=== PATIENT | male | born 1965 | race Caucasian/White ===

== ENCOUNTER 2023-12-26 00:41 | Observation (INO) | payer SELFPAY ==
[2023-12-26] VITALS (94 sets, daily range): BP systolic 73–168; BP diastolic 43–100; PULSE 46–136; TEMP 36.6–37.1; O2SAT 70–98; BMI 32.5; BMI 34.0
--- NOTE | 2023-12-26 00:56 | XR_ITS ---
The [address] [address] Patient Name: KIET DICKEY MRN: [id number] date: 1965 Sex: M Assigned Patient Location: ER Current Patient Location: ED.MAIN Accession/Order Number: [id number] Exam Date: 12/26/2023 01:05 Report Date: 12/26/2023 01:56 At the request of: FAUSTO GARDINER Procedure: XR chest 1V EXAM: XR chest 1V HISTORY: Tachycardia COMPARISON: Chest radiographs dated 03/18/2022. TECHNIQUE: One view of the chest was obtained. FINDINGS: The cardiac silhouette is normal in size. There is scarring in the mid to lower right lung. There is no significant pneumothorax or pleural effusion. No acute osseous abnormality is seen. XR/XR chest 1V IMPRESSION: 1. No acute cardiopulmonary abnormality. Electronically authenticated by: Iman SINCLAIR Date: 12/26/2023 01:56
--- NOTE | 2023-12-26 00:56 | ECG_ITS ---
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
--- NOTE | 2023-12-26 00:57 | ED.GENADUL1 ---
HPI HPI - General Adult General Chief complaint: Chest Pain Stated complaint: CHEST PAIN Time Seen by Provider: 12/26/23 00:44 Source: patient Mode of arrival: walk-in Limitations: no limitations History of Present Illness HPI narrative: 58-year-old male presents to the emergency department for a chief complaint of numbness and tingling in his left arm and a funny feeling in his chest. He has had it for half an hour since he woke up to go to the bathroom. He has a history of atrial fibrillation and thinks he may have seen a superannuation funds manager once in the remote past. This happens from time to time, the last time was 6 or 8 months ago and he did not go and have it checked and it resolved on its own. No syncope or dizziness. No fever or cough. Related Data Home Medications ?Medication ?Instructions ?Recorded ?Confirmed aspirin 81 mg capsule 81 mg PO DAILY 12/26/23 12/26/23 diltiazem HCl 60 mg tablet 60 mg PO BID 12/26/23 12/26/23 (Cardizem) Allergies Allergy/AdvReac Type Severity Reaction Status Date / Time No Known Drug Allergies Allergy Verified 12/26/23 00:53 Opioid HPI Opioid Management Most Recent Opioid Data: No Data to Display Review of Systems ROS Narrative A ten point review of systems is negative except as noted above. Exam Narrative Exam Narrative: Nurses note and vital signs reviewed and patient is not hypoxic. General: The patient appears well and in no apparent distress. Patient is resting comfortably on cart. Skin: Warm, dry, no pallor noted. There is no rash noted. Head: Normocephalic, atraumatic Eye: Normal conjunctiva, no drainage Ears, Nose, Mouth, and Throat: oral mucosa is moist. Nares patent. Cardiovascular: Irregularly irregular and tachycardic Respiratory: Patient is in no distress, no accessory muscle use, lungs are clear to auscultation, no wheezing, rales or rhonchi Back: non-tender GI: Soft and nontender Musculoskeletal: The patient has no evidence of calf tenderness, no pitting edema, symmetrical pulses noted bilaterally Neurological: A&O, normal speech Psychiatric: Cooperative Constitutional Vital Signs, click to edit/add: Last Vital Signs Temp 97.9 F 12/26/23 01:39 Pulse 107 H 12/26/23 01:31 Resp 19 12/26/23 01:31 BP 142/99 H 12/26/23 01:31 Pulse Ox 94 L 12/26/23 01:31 O2 Del Method Room Air 12/26/23 00:46 Course Vital Signs Vital signs: Vital Signs Pulse Rate 87 12/26/23 00:46 Respiratory Rate 20 12/26/23 00:46 Blood Pressure 142/98 H 12/26/23 00:46 Pulse Oximetry 96 12/26/23 00:46 Oxygen Delivery Method Room Air 12/26/23 00:46 Temperature 97.9 F 12/26/23 01:39 Pulse Rate 107 H 12/26/23 01:31 Respiratory Rate 19 12/26/23 01:31 Blood Pressure 142/99 H 12/26/23 01:31 Pulse Oximetry 94 L 12/26/23 01:31 Oxygen Delivery Method Room Air 12/26/23 00:46 Medical Decision Making MDM Narrative Medical decision making narrative: The patient presented with atrial fibrillation and RVR. He was given IV Cardizem bolus and drip and his heart rate has come down. Troponin negative. TSH somewhat elevated but the T4 is normal and the T3 is pending. He will be admitted to ICU on Cardizem drip. Treatment diagnosis and disposition were discussed with the patient. Differential Diagnosis Differential Diagnosis: Atrial fibrillation, atrial flutter, myocardial infarction, CHRISTO Lab Data Lab results reviewed: Yes I reviewed the patient's lab results Labs: Lab Results 12/26/23 Range/Units 00:50 WBC 8.0 (4.0-11.0) 10^3/uL RBC 5.65 (4.70-6.10) 10^6/uL Hgb 13.2 L (14.0-18.0) g/dL Hct 43.0 (42.0-54.0) % MCV 76.1 L (80.0-94.0) fL MCH 23.4 L (25.9-34.0) pg MCHC 30.7 (29.9-35.2) g/dL RDW 19.0 H (11.0-15.0) % Plt Count 327 (150-450) 10^3/uL MPV 9.3 L (9.5-13.5) fL Neut % (Auto) 53.2 (43.0-75.0) % Lymph % (Auto) 28.8 (20.5-60.0) % [place] % (Auto) 12.1 H (1.7-12.0) % Eos % (Auto) 4.5 (0.9-7.0) % Baso % (Auto) 1.0 (0.2-2.0) % Neut # (Auto) 4.3 (1.4-6.5) 10^3/uL Lymph # (Auto) 2.3 (1.2-3.8) 10^3/uL [place] # (Auto) 1.0 H (0.3-0.8) 10^3/uL Eos # (Auto) 0.4 (0.0-0.7) 10^3/uL Baso # (Auto) 0.1 (0.0-0.1) 10^3/uL Abs Immat Gran (auto) 0.03 (0.00-0.03) 10^3/uL Imm/Tot Granulo (auto) 0.4 (0.0-0.5) % Sodium 141 (136-145) mmol/L Potassium 3.8 (3.5-5.1) mmol/L Chloride 105 (98-107) mmol/L Carbon Dioxide 28.6 (21.0-32.0) mmol/L Anion Gap 11.2 BUN 11.0 (7.0-18.0) mg/dL Creatinine 1.16 (0.70-1.30) mg/dL Est GFR ( Amer) >60 (>=60) Est GFR (Non-Af Amer) >60 (>=60) BUN/Creatinine Ratio 9.5 Glucose 131 H (74-106) mg/dL Calcium 8.9 (8.5-10.1) mg/dL Troponin I High Sens 5.5 (4.0-76.1) pg/mL TSH 6.443 H (0.358-3.740) uIU/mL Thyroxine (T4) 6.40 (4.50-12.10) ug/dL Imaging Data Chest x-ray: Radiologist's impression: Procedure: XR chest 1V EXAM: XR chest 1V HISTORY: Tachycardia COMPARISON: Chest radiographs dated 03/18/2022. TECHNIQUE: One view of the chest was obtained. FINDINGS: The cardiac silhouette is normal in size. There is scarring in the mid to lower right lung. There is no significant pneumothorax or pleural effusion. No acute osseous abnormality is seen. IMPRESSION: 1. No acute cardiopulmonary abnormality. ECG Data Attestation: I personally reviewed and interpreted this ECG as follows: (EKG on my interpretation shows atrial fibrillation with a rate of 131.) Critical Care Time Critical Care Time Critical Care Time: Yes Total Critical Care Time: 35 Attestation: Due to the high probability of sudden and clinically significant deterioration in the patient's condition he/she required the highest level of my preparedness to intervene urgently I provided critical care time including documentation time, medication orders and management, reevaluation, vital sign assessment, ordering and reviewing of lab tests, ordering and reviewing of x-ray studies, and admission orders. Aggregate critical care time is 35 minutes including only time during which I was engaged in work directly related to his/her care and did not include time spent treating other patients simultaneously. Discharge Plan Discharge Chief Complaint: Chest Pain Clinical Impression: Atrial fibrillation with RVR Patient Disposition: Admitted As Inpatient Time of Disposition Decision: 01:58 Condition: Fair
[2023-12-26 01:02] LABS: Basophils Absolute Auto 0.1 10^3/uL (0.0-0.1); Eosinophils Absolute Auto 0.4 10^3/uL (0.0-0.7); Eosinophils Percent Auto 4.5 % (0.9-7.0); Hemoglobin 13.2 g/dL (14.0-18.0); Immature Granulocytes Abs Auto 0.03 10^3/uL (0.00-0.03); Immature Granulocytes Pct Auto 0.4 % (0.0-0.5); Lymphocytes Absolute Auto 2.3 10^3/uL (1.2-3.8); Lymphocytes Percent Auto 28.8 % (20.5-60.0); Mean Corpuscular HGB Conc 30.7 g/dL (29.9-35.2); Mean Corpuscular Hemoglobin 23.4 pg (25.9-34.0); Mean Corpuscular Volume 76.1 fL (80.0-94.0); Mean Platelet Volume 9.3 fL (9.5-13.5); Monocytes Percent Auto 12.1 % (1.7-12.0); Neutrophils Absolute Auto 4.3 10^3/uL (1.4-6.5); Neutrophils Percent Auto 53.2 % (43.0-75.0); Platelet Count 327 10^3/uL (150-450); Red Blood Count 5.65 10^6/uL (4.70-6.10)
[2023-12-26] MEDS: DILTIAZEM HCL 25 MG/5 ML VIAL 10 MG IV (01:09)
[2023-12-26 01:27] LABS: Anion Gap 11.2; BUN Creatinine Ratio 9.5; Calcium 8.9 mg/dL (8.5-10.1); Carbon Dioxide 28.6 mmol/L (21.0-32.0); Chloride 105 mmol/L (98-107); Estimated GFR (African America >60 (>=60); Estimated GFR (Non-African Ame >60 (>=60); Glucose 131 mg/dL (74-106); Potassium 3.8 mmol/L (3.5-5.1); Sodium 141 mmol/L (136-145); Thyroid Stimulating Hormone 6.443 uIU/mL (0.358-3.740); Troponin I High Sensitivity 5.5 pg/mL (4.0-76.1)
[2023-12-26] MEDS: dilTIAZem HCL 125 MG in 0.9 % SODIUM CHLORIDE 100 ML IV (01:57)
[2023-12-26] MEDS: 0.9 % SODIUM CHLORIDE 1,000 ML 75 ML IV (03:53)
[2023-12-26] MEDS: OMEPRAZOLE 20 MG CAPSULE.DR PO ×2 (03:54→08:10)
--- NOTE | 2023-12-26 04:59 | PC.NURSE ---
stopped Cardizem gtt d/t HR dropping below 60bpm
[2023-12-26] MEDS: HEPARIN SODIUM,PORCINE/D5W 25,000 UNIT/500 ML IV.SOLN 20 UNIT IV (05:34)
[2023-12-26 05:37] LABS: Basophils Absolute Auto 0.1 10^3/uL (0.0-0.1); Basophils Percent Auto 0.9 % (0.2-2.0); Eosinophils Absolute Auto 0.3 10^3/uL (0.0-0.7); Eosinophils Percent Auto 3.5 % (0.9-7.0); Hematocrit 38.7 % (42.0-54.0); Hemoglobin 12.1 g/dL (14.0-18.0); Immature Granulocytes Abs Auto 0.03 10^3/uL (0.00-0.03); Immature Granulocytes Pct Auto 0.4 % (0.0-0.5); Lymphocytes Percent Auto 27.4 % (20.5-60.0); Mean Corpuscular HGB Conc 31.3 g/dL (29.9-35.2); Mean Corpuscular Hemoglobin 23.6 pg (25.9-34.0); Mean Corpuscular Volume 75.6 fL (80.0-94.0); Mean Platelet Volume 9.5 fL (9.5-13.5); Monocytes Absolute Auto 0.9 10^3/uL (0.3-0.8); Monocytes Percent Auto 11.9 % (1.7-12.0); Neutrophils Absolute Auto 4.1 10^3/uL (1.4-6.5); Neutrophils Percent Auto 55.9 % (43.0-75.0); Platelet Count 308 10^3/uL (150-450); Red Blood Count 5.12 10^6/uL (4.70-6.10); Red Cell Distribution Width 18.5 % (11.0-15.0); White Blood Count 7.4 10^3/uL (4.0-11.0)
[2023-12-26 05:53] LABS: INR 0.97; Partial Thromboplastin Time 25.8 sec (22.3-36.2); Prothrombin Time 10.3 sec (9.0-11.6)
[2023-12-26 05:58] LABS: Alanine Aminotransferase 23 U/L (16-63); Albumin Globulin Ratio 0.8; Albumin Level 2.7 g/dL (3.4-5.0); Alkaline Phosphatase 92 U/L (46-116); Anion Gap 14.3; Aspartate Amino Transferase 12 U/L (15-37); BUN Creatinine Ratio 9.4; Bilirubin Total 0.2 mg/dL (0.2-1.0); Calcium 8.3 mg/dL (8.5-10.1); Carbon Dioxide 23.9 mmol/L (21.0-32.0); Chloride 107 mmol/L (98-107); Estimated GFR (African America >60 (>=60); Estimated GFR (Non-African Ame >60 (>=60); Globulin 3.3 g/dL; Glucose 118 mg/dL (74-106); Phosphorus 3.8 mg/dL (2.6-4.7); Potassium 4.2 mmol/L (3.5-5.1); Sodium 141 mmol/L (136-145); Troponin I High Sensitivity 6.9 pg/mL (4.0-76.1)
--- NOTE | 2023-12-26 07:36 | CA_ITS ---
Patient Name: KIET DICKEY MR#: [id number] : 1965 Exam Date: 12/26/2023 Ordering Doctor: SHAIKH Corbin GLYNN . ECHOCARDIOGRAM REPORT PROCEDURE: CA ECHO DOPPLER COMPLETE INDICATIONS: Afib, hypertension COMPARISON: None. DESCRIPTION: COMPLETE ECHOCARDIOGRAM Real-time transthoracic echocardiography with 2D, M-mode, spectral and color flow Doppler performed. QUALITY: Technical quality was adequate; no subcostal images obtained. LEFT VENTRICLE: Normal chamber size. Moderate left ventricular hypertrophy. LV EF: Global left ventricular systolic function is normal; visually estimated ejection fraction is 55 to 60%. No obvious wall motion abnormalities. DIASTOLIC: Not adequately assessed due to heart rhythm. ATRIAL SEPTUM: Inadequately visualized. LEFT ATRIUM: Normal chamber size. RIGHT ATRIUM: Normal chamber size. RIGHT VENTRICLE: Normal chamber size. Normal right ventricular systolic function. TRICUSPID VALVE: Normal mobility and thickness. No stenosis with trivial regurgitation. No evidence of pulmonary hypertension. RVSP 32 mmHg MITRAL VALVE: Normal mobility and thickness. No evidence of mitral valve stenosis. Trivial mitral regurgitation. AORTIC VALVE: Normal trileaflet appearance. No visible sclerosis. Normal leaflet mobility. No evidence of aortic valve stenosis. Trivial aortic regurgitation. AORTIC ROOT: Normal diameter and appearance. PULMONIC VALVE: Normal thickness and mobility. No stenosis. No regurgitation. PERICARDIUM: No evidence of pericardial effusion. IVC: Not well visualized. CONCLUSION: 1. Global left ventricular systolic function is normal; visually estimated ejection fraction is 55 to 60% 2. Normal right ventricular size and systolic function 3. Moderate left ventricular hypertrophy 4. No significant valvular abnormalities Adult Echocardiography Procedure Report Left Ventricle LVEDD (3.7 - 5.6 cm): 4.38 cm LVESD (2.2 - 4.0 cm): 3.09 cm LVIVS thickness (0.6 - 1.2 cm): 1.41 cm LVPW thickness (0.5 - 1.0 cm): 1.13 cm LVOT Max Gradient: 5.42 mm[Hg], 3.07 mm[Hg] LVOT Area (cm2): 1.02 m/s Peak Velocity (LVOT): 1.16 m/s, 0.88 m/s LVOT Diameter 2.66 cm Left Atrium LA Volume Index (2D A2C): 28.52 ml/m2 Left Atrium Systolic Dimension: 3.90 cm Mitral Valve Mitral Valve E-Wave Peak Velocity: 0.96 m/s Right Ventricle Aorta AO Root Diam: 3.84 cm Ascending Ao Diam: 3.53 cm Aortic Valve AoV Area (Peak Sami): 4.54 cm2, 4.76 cm2, 4.28 cm2 Peak Velocity(Antegrade Flow): 1.36 m/s, 1.14 m/s Peak Gradient(Antegrade Flow): 7.39 mm[Hg], 5.17 mm[Hg] Tricuspid Valve Peak Velocity (Regurgitant Flow): 2.71 m/s, 2.14 m/s Pulmonic Valve Peak Velocity: 0.88 m/s Peak Gradient: 3.01 mm[Hg], 2.49 mm[Hg], 3.98 mm[Hg] Right Atrium Right Atrium Systolic Pressure: 43.64 ml, 43.64 ml Dictated by: Andrei Prajapati M.D. on 12/27/2023 at 09:39 Approved by: Andrei Prajapati M.D. on 12/27/2023 at 09:42
[2023-12-26] MEDS: ENOXAPARIN SODIUM 100 MG/ML SYRINGE SUBQ (08:10)
[2023-12-26] MEDS: ASPIRIN 81 MG TABLET.DR PO (08:10)
--- OUTSIDE RECORDS SUMMARY | 2023-12-26 09:55 | XMS_ITS | CCD ---
Author Organization [facility] Inform ion Partnership [facility] Care Team Providers Care Inverted Block Operator Name Role Phone DR JOAQUIN LYON Primary Care Charley STEELE, DR VICTORINO Chase Admitting Sandra STEELE, DR VICTORINO Chase Attending Unavailchema STEELE, DR VICTORINO Chase Consulting UnavailTEOFILO Borden Consulting Unavailable HU HANNA Consulting Unavailable SONALI, DR NUÑEZ Admitting Unavailable SONALI, DR NUÑEZ Attending Unavailable DR JOAQUIN LYON Primary Care Unavailable Problems Problem Classification Problem Date Documented Date Episodic/Chronic Cardiac dysrhythmias (4 sources) Unspecified atrial fibrillation; Translations: [UNSPECIFIED ATRIAL FIBRILLATION] Onset: 03-18-2022 Chronic Coronary atherosclerosis and other heart disease (1 source) Atherosclerotic heart disease of [place] coronary artery without angina pectoris; Translations: [ASHD [place] CA W/O ANGINA PECTORIS] Onset: 03-20-2022 Chronic Esophageal disorders (1 source) Gastro-esophageal reflux disease without esophagitis; Translations: [GERD WITHOUT ESOPHAGITIS] Onset: 03-20-2022 Chronic Essential hypertension (1 source) Essential (primary) hypertension; Translations: [ESSENTIAL PRIMARY HYPERTENSION] Onset: 03-20-2022 Chronic Other aftercare (1 source) senior living (current) use of aspirin; Translations: [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 Comment on above: Performed By: #### C MREP #### [facility] [address] [place] [address] Dr. Corina Baker CK.MB [Mass/Vol] 1.84 ng/mL Normal <=3.60 [facility] Comment on above: Performed By: #### C MREP #### [facility] [address] [place] [address] Dr. Corina Baker HSTROP 9.4 pg/mL Normal 4.0-76.[address] [facility] Comment on above: Result Comment: CUT- OFF POINTS HAVE BEEN ESTABLISHED BASED ON THE FOURTH UNIVERSAL DEFINITIONS OF MYOCARDIAL INFARCTION. THE UPPER REFERENCE LIMIT (URL) OF TROPONIN, DEFINED THE 99TH PERCENTILE OF cTnI DISTRIBUTION IN A REFERENCE POPULATION, HAS BEEN CONFIRMED THE DECISION THRESHOLD FOR MA DIAGNOSIS. Performed By: #### C MREP #### [facility] [address] [place] [address] Dr. Corina Baker BNPon 03-18-2022 Natriuretic peptide B (Bld) [Mass/Vol] 140.0 pg/mL Normal <=900.0 [facility] Comment on above: Performed By: #### B MAKING DEPARTMENT PREPARER, BMP #### [facility] [address] [place] [address] Dr. Corina Baker CARDIAC MINDI 3-6on 2 CK [Catalytic activity/Vol] 166 U/L Normal 39-[address] [facility] Comment on above: Performed By: #### C MREP #### [facility] [address] [place] [address] Dr. Corina Baker CK.MB [Mass/Vol] 2.16 ng/mL Normal <=3.60 [facility] Comment on above: Performed By: #### C MREP #### [facility] [address] [place] [address] Dr. Corina Baker HSTROP 8.2 pg/mL Normal 4.0-76.[address] [facility] Comment on above: Result Comment: CUT- OFF POINTS HAVE BEEN ESTABLISHED BASED ON THE FOURTH UNIVERSAL DEFINITIONS OF MYOCARDIAL INFARCTION. THE UPPER REFERENCE LIMIT (URL) OF TROPONIN, DEFINED THE 99TH PERCENTILE OF cTnI DISTRIBUTION IN A REFERENCE POPULATION, HAS BEEN CONFIRMED THE DECISION THRESHOLD FOR [place] DIAGNOSIS. Performed By: #### C MREP #### [facility] [address] [address] [address] Corina Baker CBC AUTO DIFFon 03-18-2022 BASO # 0.1 103/ul Normal 0.0-0.1 [facility] Comment on above: Performed By: #### C BC #### [facility] [address] [address] [address] Corina Baker Basophils/100 WBC (Bld) 0.7 % Normal 0.2-2.0 [facility] Comment on above: Performed By: #### C BC #### [facility] [address] [place] [address] Dr. Corina Baker EO # 0.2 103/ul Normal 0.0-0.7 [facility] Comment on above: Performed By: #### C BC #### [facility] [address] [place] [address] Dr. Corina Baker Eosinophils/100 WBC (Bld) 2.2 % Normal 0.9-7.0 [facility] Comment on above: Performed By: #### C BC #### [facility] [address] [place] [address] Dr. Corina Bakre Erythrocyte distribution width (RBC) [Ratio] 17.3 % Critically high 11.0-15.0 [facility] Comment on above: Performed By: #### C BC #### [facility] [address] [place] [address] Dr. Corina Baker Hematocrit (Bld) [Volume fraction] 40.5 % Critically low 42.0-54.0 [facility] Comment on above: Performed By: #### C BC #### [facility] [address] [place] [address] Dr. Corina Baker Hemoglobin (Bld) [Mass/Vol] 12.5 g/dL Critically low 14.0-18.0 [facility] Comment on above: Performed By: #### C BC #### [facility] [address] [place] [address] Dr. Corina Baker IG # 0.03 10e3/ul Normal 0.00-0.03 [facility] Comment on above: Performed By: #### C BC #### [facility] [address] [place] [address] Dr. Corina Baker IG % 0.3 % Normal 0.0-0.5 [facility] Comment on above: Performed By: #### C BC #### [facility] [address] [place] [address] Dr. Corina Baker LYMPH # 1.5 103/ul Normal 1.2-3.8 [facility] Comment on above: Performed By: #### C BC #### [facility] [address] [place] [address] Dr. Corina Baker Lymphocytes/100 WBC (Bld) 17.1 % Critically low 20.5-60.0 [facility] Comment on above: Performed By: #### C BC #### [facility] [address] [place] [address] Dr. Corina Baker MANUAL DIFF REQ NO Normal [facility] Comment on above: Performed By: #### C BC #### [facility] [address] [place] [address] Dr. Corina Baker MCH (RBC) [Entitic mass] 23.8 pg Critically low 25.9-34.0 [facility] Comment on above: Performed By: #### C BC #### [facility] [address] [place] [address] Dr. Corina Baker MCHC (RBC) [Mass/Vol] 30.9 g/dL Normal 29.9-35.2 [facility] Comment on above: Performed By: #### C BC #### [facility] [address] [place] [address] Dr. Corina Baker MCV (RBC) [Entitic vol] 77.0 fL Critically low 80.0-94.0 [facility] Comment on above: Performed By: #### C BC #### [facility] [address] [place] [address] Dr. Corina Baker MONO # 1.0 103/ul Critically high 0.3-0.8 [facility] Comment on above: Performed By: #### C BC #### [facility] [address] [address] [address] Corina Baker Monocytes/100 WBC (Bld) 11.5 % Normal 1.7-12.0 [facility] Comment on above: Performed By: #### C BC #### [facility] [address] [address] [address] Corina Baker NEUT # 6.1 103/ul Normal 1.4-6.[address] [facility] Comment on above: Performed By: #### C BC #### [facility] [address] [address] [address] Corina Baker Neutrophils/100 WBC (Bld) 68.2 % Normal 43.0-75.[address] [facility] Comment on above: Performed By: #### C BC #### [facility] [address] [place] [address] Dr. Corina Baker Platelet mean volume (Bld) [Entitic vol] 9.0 fL Critically low 9.5-13.5 [facility] Comment on above: Performed By: #### C BC #### [facility] [address] [address] [address] Corina Baker PLT 311 103/ul Normal 150-[address] [facility] Comment on above: Performed By: #### C BC #### [facility] [address] [place] [address] Dr. Corina Baker RBC 5.26 106/ul Normal 4.70-6.[address] [facility] Comment on above: Performed By: #### C BC #### [facility] [address] [place] [address] Dr. Corina Baker WBC 8.9 103/ul Normal 4.0-11.[address] [facility] Comment on above: Performed By: #### C BC #### [facility] [address] [place] [address] Dr. Corina Baker D-DIMERon 03-18-2022 D-DIMER 0.51 mg/L FEU Normal <=0.59 [facility] Comment on above: Performed By: #### D DIM #### [facility] [address] [place] [address] Dr. Corina Baker D-DIMER COMMENTS SEE BELOW Normal [facility] Comment on above: Result Comment: Incr eases in D-Dimer concentration observed with thromboembolic events can be variable due to localization, size, and age of the thrombus. Therefore, a thromboembolic event cannot be diagnosed with certainty on the basis of the reference range. D-Dimers may also be elevated for a variety of disorders including: advanced age, , coronary disease, cancer, liver disease, infection, inflammation, hematoma, DIC, trauma, post-surgery, diabetes, thrombolytic or anticoagulant therapy, stress, and generalized hospitalization. Performed By: #### D DIM #### [facility] [address] [place] [address] Dr. Corina Baker PROF CHEM 8 (BAS METB)on Anion gap [Moles/Vol] 7.7 mmol/L Normal [facility] Comment on above: Performed By: #### B MAKING DEPARTMENT PREPARER, BMP #### [facility] [address] [place] [address] Dr. Corina Baker Calcium [Mass/Vol] 8.2 mg/dL Critically low 8.5-10.1 [facility] Comment on above: Performed By: #### B MAKING DEPARTMENT PREPARER, BMP #### [facility] [address] [place] [address] Dr. Corina Baker Chloride [Moles/Vol] 108 mmol/L Critically high 98-[address] [facility] Comment on above: Performed By: #### B MAKING DEPARTMENT PREPARER, BMP #### [facility] [address] [place] [address] Dr. Corina Baker CO2 [Moles/Vol] 27.2 mmol/L Normal 21.0-32.0 [facility] Comment on above: Performed By: #### B MAKING DEPARTMENT PREPARER, BMP #### [facility] [address] [place] [address] Dr. Corina Baker Creatinine [Mass/Vol] 0.97 mg/dL Normal 0.70-1.30 [facility] Comment on above: Performed By: #### B MAKING DEPARTMENT PREPARER, BMP #### [facility] [address] [place] [address] Dr. Corina Baker EGFR-AF HUNGARIAN >60 Normal >=60 [facility] Comment on above: Performed By: #### B MAKING DEPARTMENT PREPARER, BMP #### [facility] [address] [place] [address] Dr. Corina Baker EGFR-NON AF HUNGARIAN >60 Normal >=60 [facility] Comment on above: Performed By: #### B MAKING DEPARTMENT PREPARER, BMP #### [facility] [address] [address] [address] Corina Baker Glucose [Mass/Vol] 103 mg/dL Normal 74-106 [facility] Comment on above: Performed By: #### B MAKING DEPARTMENT PREPARER, BMP #### [facility] [address] [place] [address] Dr. Corina Baker Potassium [Moles/Vol] 3.9 mmol/L Normal 3.5-5.1 [facility] Comment on above: Performed By: #### B MAKING DEPARTMENT PREPARER, BMP #### [facility] [address] [place] [address] Dr. Corina Baker Sodium [Moles/Vol] 139 mmol/L Normal 136-145 [facility] Comment on above: Performed By: #### B MAKING DEPARTMENT PREPARER, BMP #### [facility] [address] [place] [address] Dr. Corina Baker Urea nitrogen [Mass/Vol] 11.0 mg/dL Normal 7.0-18.0 [facility] Comment on above: Performed By: #### B MAKING DEPARTMENT PREPARER, BMP #### [facility] [address] [place] [address] Dr. Corina Baker Urea nitrogen/Creatinine [Mass ratio] 11.3 mg/mg Normal [facility] Comment on above: Performed By: #### B MAKING DEPARTMENT PREPARER, BMP #### [facility] [address] [place] [address] Dr. Corina Baker XR CHEST 2 Von 03-18-2022 XR CHEST 2 V EXAMINATION: XR CHES T 2 V HISTORY: Palpitations COMPARISON: Chest x-rays 10/23/2018 TECHNIQUE: Portable chest FINDINGS: The lung parenchyma is free of consolidation or infiltrate. Persistent scarring within the right mid hemithorax. No pneumothorax or pleural effusion. The cardiac, mediastinal and hilar contours are normal. The visualized osseous structures exhibit no gross abnormality. IMPRESSION: No acute cardiopulmonary abnormality. Electronically authenticated by: HU HANNA Date: 2022-03-18 20:13 Normal [facility] Encounters Encounter Date Encounter Type Care Provider Facility Start: 04-03-[address] JOAQUIN LYON Facility :[facility] Start: 03-18-2022 End: 03-19-[address] JOAQUIN LYON Facility:[facility] Payers Date Payer Category Payer Unknown [id number] 1965 Unknown [id number] 1959 Self-pay [id number] Summary Purpose Family History No Family History Records Found Advance Directives No Advanced Directives Records Found Additional Source Comments (unrecognized sect ion and content) No Status Records Found INFORMATION SOURCE (unrecogn ized section and content) DATE CREATED AUTHOR 04/04/2022 [facility] FOR RECORDS PERTAINING TO PATIENTS WHO ARE OR HAVE BEEN ENROLLED IN A CHEMICAL DEPENDENCY/SUBSTANCEABUSE PROGRAM, SOME INFORMATION MAY BE OMITTED. This clinical summary was aggregated from multiple sources. Caution should be exercised in using it in the provision of clinical care. This summary normalizes information from multiple sources, and as a consequence, information in this document may materially change the coding, format and clinical context of patient data. In addition, data may be omitted in some cases. CLINICAL DECISIONS SHOULD BE BASED ON THE PRIMARY CLINICAL RECORDS. [facility]. provides no warranty or guarantee of the accuracy or completeness of information in this document.
--- NOTE | 2023-12-26 10:17 | CM.NOTE ---
Rounds made with Dr. Jerome. Dr. Jerome discusses plan of care and medications to be taken at home. Mr. Pinzon verbalizes understanding. Plan for discharge today.
--- NOTE | 2023-12-26 10:19 | ECG_ITS ---
[facility] Test Date: 2023-12-26 Pat Name: KIET DICKEY Department: Room: Formerly named [facility] Gender: Male Stock Replenisher: : 1965 Requested By: Order Number: [id number] Reading MD: SARY BHATTI Measurements Intervals [place] Rate: 56 P: -16603 SC: -23300 QRS: 61 QRSD: 94 T: 71 QT: 442 QTc: 433 Interpretive Statements 1210 Atrial fibrillation 9140 abnormal rhythm ECG Compared to ECG 12/26/2023 00:51:19 No significant changes Electronically Signed On 12-26-2023 22:00:05 EDT by SRAY BHATTI
--- NOTE | 2023-12-26 10:47 | P.HP_ITS ---
HPI H&P: HPI History of Present Illness Chief complaint: CHEST PAIN Narrative: HPI and Hospital Course: 58-year-old male with prior history of paroxysmal A-fib presented to ER last evening when he woke up with chest palpitation. He knew that he had A-fib for which he came to ED for further evaluation. Patient was found to have A-fib with RVR with rates as high as 130. He was started on Cardizem drip but overnight he became bradycardic and it had to be stopped. Patient has been in A-fib since admission but his rate is well-controlled. If anything he is bradycardic with heart rate as low as 40 when he is sleeping. He is asymptomatic and denies chest pain, shortness of breath, palpitation. Patient uses oral Cardizem as outpatient. His [id number] score is 1 and is not a candidate for anticoagulation for stroke prophylaxis. Echocardiogram - no sig structural abnormality. Normal LVEF. Patient is stable for discharge. We will withhold his Cardizem as outpatient given his bradycardia. He will need to follow-up with his PCP as outpatient. Opioid HPI Opioid Management Most Recent Pain and Opioid Data: Last Pain Assessment 12/26/23 11:00 Last ORT Total Score 3 12/26/23 02:46 Last ORT Risk Category Low Risk 12/26/23 02:46 Review of Systems ROS Status of ROS 10 or more systems reviewed and unremark able except as noted in history and below [facility] Medical History (Updated 12/26/23 @ 10:51 by Shaikh Justus MD) Hernia of testicles ?K40.20 - Bilateral inguinal hernia, without obstruction or gangrene, not specified as recurrent (ICD-10) Abdominal hernia ?K46.9 - Unspecified abdominal hernia without obstruction or gangrene (ICD- 10) HTN (hypertension) ?I10 - Essential (primary) hypertension (ICD-10) Family History (Updated 12/26/23 @ 03:10 by Licha Cook) Father Family history of myocardial infarction Other Family history of hypertension Social History (Updated 12/26/23 @ 03:14 by Licha Cook) Within the past year, how often did you have a drink containing alcohol: 4 or more times a week Within the past year, how many standard drinks containing alcohol did you have on a typical day: 5 or 6 Within the past year, how often did you have six or more drinks on one occasion: weekly Total score: 7 Score interpretation: A score of 4 or more indicates drinking is likely to affect patient's safety. Smoking status: Current every day smoker What tobacco products do you use: c igarettes Packs per day: 1 Non-prescribed substance use: denies use Highest level of school completed/degree received: high school graduate Are you now , , , , never or living with a partner: In a typical week, how many times do you talk on the telephone with family, friends, or neighbors: twice per week How often do you get together with friends or relatives: twice per week How often do you attend islam or orthodoxy services: never Do you belong to any clubs or organizations such as islam groups unions, f [employer] or athletic groups, or school groups: yes Total score: 3 Score interpretation: A score of greater than or equal to 2 indicates the lowest level of social isolation. Little interest or pleasure in doing things: not at all Feeling down, depressed, or hopeless: not at all Feel stressed/tense/nervous/anxious/difficulty sleeping: not at all Do you think of yourself as: straight/heterosexual Gender Identity: male Meds Home Medications and Allergies Home Medications ?Medication ?Instructions ?Recorded ?Confirmed ?Type aspirin 81 mg capsule 81 mg PO DAILY 12/26/23 12/26/23 History diltiazem HCl 60 mg tablet 60 mg PO BID 12/26/23 12/26/23 History (Cardizem) Allergies Allergy/AdvReac Type Severity Reaction Status Date / Time No Known Drug Allergies Allergy Verified 12/26/23 00:53 Exam Constitutional Vital Signs, click to edit/add: Last Vital Signs Temp 98.6 F 12/26/23 08:00 Pulse 52 L 12/26/23 10:00 Resp 16 12/26/23 08:00 BP 104/67 12/26/23 08:00 Pulse Ox 98 12/26/23 10:00 O2 Del Method Room Air 12/26/23 07:39 Documenting provider has reviewed patient's vital signs: yes Common normals: no apparent distress and oriented x3 General appearance: cooperative Respiratory Common normals: normal respiratory effort and clear to auscultation bilaterally Effort & inspection: able to speak in complete sentences Auscultation: clear to auscultation bilaterally Cardio Common normals: S1 normal heart sound and S2 normal heart sound Rate: bradycardic Rhythm: abnormal rhythm Heart sounds: S1 normal and S2 normal GI Common normals: Normal to inspection, nondistended, normoactive bowel sounds present, soft to palpation, non-tender and no hepatosplenomegaly Palpation: soft and no hepatosplenomegaly Extremity Common normals: no clubbing, cyanosis or edema Neuro Common normals: oriented x3, moves all extremities and no focal motor deficits Psych Common normals: mental status grossly normal, denies hallucinations, denies homicidal ideation and denies suicidal ideation Results Labs Labs: Short CBC 12/26/23 12/26/23 Range/Units 00:50 05:30 WBC 8.0 7.4 (4.0-11.0) 10^3/uL Hgb 13.2 L 12.1 L (14.0-18.0) g/dL Hct 43.0 38.7 L (42.0-54.0) % Plt Count 327 308 (150-450) 10^3/uL BMP 12/26/23 12/26/23 00:50 05:30 Sodium 141 141 Potassium 3.8 4.2 Chloride 105 107 Carbon Dioxide 28.6 23.9 BUN 11.0 10.0 Creatinine 1.16 1.06 Glucose 131 H 118 H Calcium 8.9 8.3 L Liver Function 12/26/23 Range/Units 05:30 Total Bilirubin 0.2 (0.2-1.0) mg/dL AST 12 L (15-37) U/L ALT 23 (16-63) U/L Alkaline Phosphatase 92 (46-116) U/L Albumin 2.7 L (3.4-5.0) g/dL Assessment and Plan Assessment and Plan (1) Atrial fibrillation with RVR: Assessment and Plan: Presented with A-fib with RVR. Now bradycardic but asymptomatic. Will discharge patient on low-dose aspirin. Hold Cardizem due to bradycardia. Will need outpatient follow-up with cardiology. (2) HTN (hypertension): Assessment and Plan: Hold Cardizem as outpatient as blood pressure is more or less normal and there is concern for bradycardia. Monitor blood pressure at home as outpatient and add medication if needed Qualifiers: Hypertension type: primary hypertension Qualified Code(s): I10 - Essential (primary) hypertension
[2023-12-27 08:11] LABS: Triiodothyronine (T3) 116 ng/dL (71-180)
--- NOTE | 2023-12-30 13:20 | CM.DCFOLLOWU ---
1st attempt 12/30/23
== END 2023-12-26 14:56 | disposition home or self-care (01) ==
LOC: ER 01:58 → ICU 05:59
PROVIDERS: Registered Nurse; Admitting Provider Internal Medicine; Emergency Provider Emergency Medicine; Visit Provider Internal Medicine
DX: I48.91 Unspecified atrial fibrillation (principal); I10 Essential (primary) hypertension; R00.1 Bradycardia, unspecified; F17.210 Nicotine dependence, cigarettes, uncomplicated
CPT/HCPCS: 36415; 36591; 71045; 80048; 80053; 83735; 83880; 84100; 84436; 84443; 84480; 84484; 85025; 85610; 85730; 93005; 93270; 93306; 94761; 96365; 96366; 96367; 96372; 96376; 99285; G0378; J1644; J1650

== ENCOUNTER 2024-09-16 00:16 | Emergency (ER) | payer SELFPAY ==
[2024-09-16 00:20] VITALS: BP 183/110; PULSE 82; TEMP 36.6; O2SAT 96; BMI 33.2
--- NOTE | 2024-09-16 00:23 | ECG_ITS ---
[facility] Test Date: 2024-09-16 Pat Name: KIET DICKEY Department: Room: - Gender: Male Food Clerk: : 1965 Requested By: [id number] Order Number: [id number] Reading MD: DARIA PANIAGUA M.D. Measurements Intervals [place] Rate: 78 P: 54 [place]: 162 QRS: 52 QRSD: 92 T: 62 QT: 376 QTc: 409 Interpretive Statements 1100 Sinus rhythm 9110 normal ECG Compared to ECG 12/26/2023 09:22:59 Atrial fibrillation no longer present Electronically Signed On 09-16-2024 12:13:09 EDT by DARIA PANIAGUA M.D.
[2024-09-16 00:29] VITALS: BP 167/109; PULSE 82
--- NOTE | 2024-09-16 00:34 | ED.CHESTPAI1 ---
HPI - Chest Pain General Chief Complaint: Chest Pain Stated Complaint: CHEST PAIN Time Seen by Provider: 09/16/24 00:30 Source: patient Mode of arrival: walk-in History of Present Illness HPI narrative: daily smoker. chest pain on and off the past week. Cordell developed chest pain again while walking up the stairs and pain radiated into the left arm. Onset about an hour ago. Chest pain has resolved. Left arm still tingly. No weakness of his extremities . No associated dyspnea or nausea Related Data Home Medications ?Medication ?Instructions ?Recorded ?Confirmed aspirin 81 mg capsule 81 mg PO DAILY 12/26/23 09/16/24 aspirin 325 mg tablet 325 mg PO DAILY 09/16/24 09/16/24 metoprolol tartrate 25 mg tablet 25 mg PO Q12H 09/16/24 09/16/24 Allergies Allergy/AdvReac Type Severity Reaction Status Date / Time No Known Drug Allergies Allergy Verified 09/16/24 00:19 Review of Systems ROS Status of ROS 10 or more systems reviewed and unremarkable except as noted in history and below [facility] Medical History (Updated 09/16/24 @ 02:48 by Trent Major MD) Atrial fibrillation with RVR ?I48.91 - Unspecified atrial fibrillation (ICD-10) Hernia of testicles ?K40.20 - Bilateral inguinal hernia, without obstruction or gangrene, not specified as recurrent (ICD-10) Abdominal hernia ?K46.9 - Unspecified abdominal hernia without obstruction or gangrene (ICD-10) HTN (hypertension) ?I10 - Essential (primary) hypertension (ICD-10) Family History (Updated 12/26/23 @ 03:10 by Licha Cook) Father Family history of myocardial infarction Other Family history of hypertension Social History (Updated 12/26/23 @ 03:14 by Licha Cook) Within the past year, how often did you have a drink containing alcohol: 4 or more times a week Within the past year, how many standard drinks containing alcohol did you have on a typical day: 5 or 6 Within the past year, how often did you have six or more drinks on one occasion: weekly Total score: 7 Score interpretation: A score of 4 or more indicates drinking is likely to affect patient's safety. Smoking status: Current every day smoker What tobacco products do you use: cigarettes Packs per day: 1 Non-prescribed substance use: denies use Highest level of school completed/degree received: high school graduate Are you now , , , , never or living with a partner: In a typical week, how many times do you talk on the telephone with family, friends, or neighbors: twice per week How often do you get together with friends or relatives: twice per week How often do you attend bahai or amish services: never Do you belong to any clubs or organizations such as bahai groups unions, [employer] or athletic groups, or school groups: yes Total score: 3 Score interpretation: A score of greater than or equal to 2 indicates the lowest level of social isolation. Little interest or pleasure in doing things: not at all Feeling down, depressed, or hopeless: not at all Feel stressed/tense/nervous/anxious/difficulty sleeping: not at all Do you think of yourself as: straight/heterosexual Gender Identity: male Exam Constitutional Vital Signs, click to edit/add: Last Vital Signs Temp 97.9 F 09/16/24 00:20 Pulse 82 09/16/24 00:20 Resp 20 09/16/24 00:20 BP 167/109 H 09/16/24 00:29 Pulse Ox 96 09/16/24 00:20 O2 Del Method Room Air 09/16/24 00:20 Common normals: no apparent distress, average body habitus, oriented x3, no limitations, healthy appearing, alert and well nourished [facility] Common normals: normocephalic and head/scalp atraumatic Eye Common normals: EOMs intact bilaterally and conjunctivae normal Respiratory Common normals: normal respiratory effort, no retractions, no use of accessory muscles and clear to auscultation bilaterally Cardio Common normals: regular rate, regular rhythm, S1 normal heart sound and S2 normal heart sound GI Common normals: Normal to inspection, nondistended, normoactive bowel sounds present, soft to palpation and non-tender Extremity Common normals: normal to inspection and full ROM Neuro Common normals: oriented x3, CN's II-XII intact bilaterally, moves all extremities and no focal motor deficits Psych Appearance: grossly normal Course Vital Signs Vital signs: Vital Signs Temperature 97.9 F 09/16/24 00:20 Pulse Rate 82 09/16/24 00:20 Respiratory Rate 20 09/16/24 00:20 Blood Pressure 183/110 H 09/16/24 00:20 Pulse Oximetry 96 09/16/24 00:20 Oxygen Delivery Method Room Air 09/16/24 00:20 Temperature 97.9 F 09/16/24 00:20 Pulse Rate 82 09/16/24 00:20 Respiratory Rate 20 09/16/24 00:20 Blood Pressure 167/109 H 09/16/24 00:29 Pulse Oximetry 96 09/16/24 00:20 Oxygen Delivery Method Room Air 09/16/24 00:20 MDM - Chest Pain MDM Narrative Medical decision making narrative: daily smoker presents with recurrent chest pain on and off over the past week. Tonight chest pain occurred while climbing the stairs and associated with left arm numbness. BP elevated. Did improved spontaneously but remained elevated. patient now asymptomatic. cxray without acute findings and troponin and d-dimer neg. Patient informed of the plan for admission as his history concerning for angina. He did not want to stay but was willing to have a 2nd troponin which returned WNL. Discharged and advised close follow up with his doctor Lab Data Labs: Lab Results 09/16/24 09/16/24 Range/Units 00:30 03:00 WBC 7.1 (4.0-11.0) 10^3/uL RBC 5.62 (4.70-6.10) 10^6/uL Hgb 14.7 (14.0-18.0) g/dL Hct 46.0 (42.0-54.0) % MCV 81.9 (80.0-94.0) fL MCH 26.2 (25.9-34.0) pg MCHC 32.0 (29.9-35.2) g/dL RDW 16.8 H (11.0-15.0) % Plt Count 293 (150-450) 10^3/uL MPV 9.9 (9.5-13.5) fL Neut % (Auto) 64.9 (43.0-75.0) % Lymph % (Auto) 21.6 (20.5-60.0) % [place] % (Auto) 9.3 (1.7-12.0) % Eos % (Auto) 3.5 (0.9-7.0) % Baso % (Auto) 0.6 (0.2-2.0) % Neut # (Auto) 4.6 (1.4-6.5) 10^3/uL Lymph # (Auto) 1.5 (1.2-3.8) 10^3/uL [place] # (Auto) 0.7 (0.3-0.8) 10^3/uL Eos # (Auto) 0.3 (0.0-0.7) 10^3/uL Baso # (Auto) 0.0 (0.0-0.1) 10^3/uL Abs Immat Gran (auto) 0.01 (0.00-0.03) 10^3/uL Imm/Tot Granulo (auto) 0.1 (0.0-0.5) % D-Dimer 0.54 (<=0.59) mg/L FEU Sodium 141 (136-145) mmol/L Potassium 3.9 (3.5-5.1) mmol/L Chloride 103 (98-107) mmol/L Carbon Dioxide 29.5 (21.0-32.0) mmol/L Anion Gap 12.4 BUN 11.0 (7.0-18.0) mg/dL Creatinine 1.26 (0.70-1.30) mg/dL Est GFR ( Amer) >60 (>=60 mL/min/1.73m^2) Est GFR (Non-Af Amer) 59 L (>=60 mL/min/1.73m^2) BUN/Creatinine Ratio 8.7 Glucose 128 H (74-106) mg/dL Calcium 8.7 (8.5-10.1) mg/dL Troponin I High Sens 32.2 33.0 (4.0-76.1) pg/mL NT-Pro-B Natriuret Pep 42.0 (<=900.0) pg/mL Discharge Plan Discharge Chief Complaint: Chest Pain Clinical Impression: Chest pain, Hypertension Patient Disposition: Home, Self-Care Prescriptions / Home Meds: No Action aspirin 81 mg capsule 81 mg PO DAILY metoprolol tartrate 25 mg tablet 25 mg PO Q12H aspirin 325 mg tablet 325 mg PO DAILY Print Language: [place] Citizen Instructions: Chest Pain (ED), Hypertension (ED) Additional Instructions: follow up with your doctor in a couple of days for recheck Referrals: Vlad Hart MD [Primary Care Provider] - 1 week
[2024-09-16 00:41] LABS: Basophils Percent Auto 0.6 % (0.2-2.0); Eosinophils Absolute Auto 0.3 10^3/uL (0.0-0.7); Eosinophils Percent Auto 3.5 % (0.9-7.0); Hemoglobin 14.7 g/dL (14.0-18.0); Immature Granulocytes Abs Auto 0.01 10^3/uL (0.00-0.03); Immature Granulocytes Pct Auto 0.1 % (0.0-0.5); Lymphocytes Absolute Auto 1.5 10^3/uL (1.2-3.8); Lymphocytes Percent Auto 21.6 % (20.5-60.0); Mean Corpuscular Hemoglobin 26.2 pg (25.9-34.0); Mean Corpuscular Volume 81.9 fL (80.0-94.0); Mean Platelet Volume 9.9 fL (9.5-13.5); Monocytes Absolute Auto 0.7 10^3/uL (0.3-0.8); Monocytes Percent Auto 9.3 % (1.7-12.0); Neutrophils Absolute Auto 4.6 10^3/uL (1.4-6.5); Neutrophils Percent Auto 64.9 % (43.0-75.0); Platelet Count 293 10^3/uL (150-450); Red Blood Count 5.62 10^6/uL (4.70-6.10); Red Cell Distribution Width 16.8 % (11.0-15.0); White Blood Count 7.1 10^3/uL (4.0-11.0)
[2024-09-16 00:50] LABS: D Dimer 0.54 mg/L FEU (<=0.59)
[2024-09-16 01:06] LABS: Anion Gap 12.4; BUN Creatinine Ratio 8.7; Calcium 8.7 mg/dL (8.5-10.1); Carbon Dioxide 29.5 mmol/L (21.0-32.0); Chloride 103 mmol/L (98-107); Estimated GFR (African America >60 (>=60 mL/min/1.73m^2); Estimated GFR (Non-African Ame 59 (>=60 mL/min/1.73m^2); Glucose 128 mg/dL (74-106); Potassium 3.9 mmol/L (3.5-5.1); Sodium 141 mmol/L (136-145); Troponin I High Sensitivity 32.2 pg/mL (4.0-76.1)
[2024-09-16 03:49] VITALS: BP 143/96; PULSE 70; O2SAT 96
== END 2024-09-16 03:52 | disposition home or self-care (01) ==
PROVIDERS: Emergency Provider Internal Medicine; PCP Family Medicine
DX: R07.9 Chest pain, unspecified (principal); I10 Essential (primary) hypertension; F17.210 Nicotine dependence, cigarettes, uncomplicated
CPT/HCPCS: 36415; 71045; 80048; 83880; 84484; 85025; 85378; 93005; 99285

== ENCOUNTER 2024-10-01 11:40 | Outpatient (OUT) | payer SELFPAY ==
--- NOTE | 2024-10-01 11:50 | NM_ITS ---
Patient Name: KITE DICKEY MR#: [id number] : 1965 Exam Date: 10/01/2024 Ordering Doctor: DR JOAQUIN LYON . RADIOLOGY REPORT PROCEDURE: NM DENI PERF SPECT REST STR COMPARISON: None. INDICATIONS: CHEST PAIN, HISTORY OF ATRIAL FIBRILLATION TECHNIQUE: Exam Description: Stress/Rest two day protocol gated SPECT Rest Imagin.5 mCi Tc-99m Cardiolite IV on 10/01/2024 Stress Imaging 25.2 mCi Tc-99m Cardiolite IV on 10/02/2024 Exercise Protocol: Cecil Heart Rate (bpm): Rest: 77 Max: 151 PMHR: 93 Blood Pressure: Rest: 148/86 Max: 198/84 Exercise Time: Minutes: 5 Seconds: 08 Stage Reached: Stage: 2 Mets 7.0 Symptoms: Rest and peak stress ECG findings were pending and the exercise portion of the study was pending per attending physician [facility] . For more details please see separate cardiac stress test report. FINDINGS: QUALITY OF STUDY: Good PERFUSION DEFECT: LOCATION: Inferior SIZE: Moderate SEVERITY: Moderate TYPE: Fixed, but exhibits adequate thickening and contractility WALL MOTION: Normal LV SIZE: 95 mL. TID / TCD: 0.8 LVEF: Calculated EF 58%. SUMMARY: CONCLUSION: Nuclear myocardial perfusion images revealed fixed inferior defect, most likely representing diaphragmatic attenuation artifact however I cannot totally rule out prior inferior infarct. No evidence of induced ischemia Normal left ventricle systolic function, ejection fraction 58% No transient ischemic dilatation, TID 0.8 Treadmill EKG stress result is reported separately Dictated by: Patty Shi MD on 10/02/2024 at 17:03 Approved by: Patty Shi MD on 10/02/2024 at 17:09
--- NOTE | 2024-10-02 16:53 | PM.STRESS ---
Stress Test Stress Test Allergies Allergy/AdvReac Type Severity Reaction Status Date / Time No Known Drug Allergies Allergy Verified 09/16/24 00:19 Requesting physician: Vlad Hart Procedure: Treadmill EKG stress test General Information: Reason for Stress Test: [Chest pain, A-fib] Cardiac History and Risk Factors: [Hypertension, tobacco abuse, history of cardiovascular disease] Resting 12 - Lead Electrocardiogram: Resting EKG showed normal sinus rhythm, heart rate 79 bpm, possible old septal infarct, no T or ST changes. Resting blood pressure 148/86 mmHg. The patient was exercised according to standard Cecil protocol and he was able to finish 5 minutes and 8 seconds of exercise reaching stage II and achieving 7 METS and max heart rate was 151 bpm consistent with 93% of age-predicted maximum heart rate. Peak blood pressure 198/84 mmHg. Exercise was terminated secondary to shortness of breath and fatigue and achievement of target heart rate. Patient did not experience any chest, neck, jaw or arm discomfort throughout the test. Patient was monitored for a total of 8 minutes into recovery phase with heart rate back to 100 bpm and blood pressure to 160/82 mmHg. EKG during the exercise, at peak exercise, and during recovery phase did not show any significant T or ST changes or arrhythmias. Stress Test: Protocol: [Cecil protocol] Exercise Capacity: [Good] Blood Pressure Response: [Resting hypertension, normal blood pressure response] Rhythm: [No arrhythmia] ST - Response: [No ST changes] Patient Response: [Normal response] Interpretation: Maximal stress test achieving 93% of age predicted maximum heart rate Good exercise tolerance Appropriate heart rate and blood pressure response to exercise The stress test is negative for exercise-induced ischemic symptoms, EKG changes, or arrhythmias Nuclear myocardial perfusion stress images result will be reported separately Patty Shi MD, FACC
== END 2024-10-01 11:41 | disposition home or self-care (01) ==
LOC: NM 11:40
PROVIDERS: PCP Family Medicine; Visit Provider Family Medicine
DX: R07.9 Chest pain, unspecified (principal); I48.0 Paroxysmal atrial fibrillation
CPT/HCPCS: 78452; A9500

== ENCOUNTER 2024-10-02 11:49 | Outpatient (OUT) | payer SELFPAY ==
--- NOTE | 2024-10-02 12:27 | PC.NURSE ---
Nursing Note Cardiac Stress Test Reviewed: Medication, allergies and patient history reviewed. Stress Test: [ x] Patient tolerated stress test well. [ ] Patient unable to tolerate walking on treadmill. Switched to Lexiscan stress test. [x ] No chest pain noted per patient [ ] Chest pain that resolved prior to leaving stress lab. [ ] No dyspnea noted. [ x] Dyspnea that resolved prior to leaving stress lab. [x ] Patient left stress lab asymptomatic and hemodynamically stable. [ ] Patient taken to the Emergency Room due to non-resolving symptoms following stress test. [ ] Patient achieved target heart rate. [ ] Patient unable to achieve target heart rate. [ ] Aminophylline administered as reversal agent to Lexiscan (Regadenoson). [ ] Nitro administered. Nursing Comments:Pt had cardiolite stress test done. TOlerated well. No CP but did have SOB that he states is normal for him because he is out of shape. Pt symptoms resolved prior to leaving stress lab. Pt ambulated to cafeteria for lunch prior to images.
== END 2024-10-02 11:50 | disposition home or self-care (01) ==
LOC: CARD 11:49
PROVIDERS: PCP Family Medicine; Visit Provider Family Medicine
DX: R07.9 Chest pain, unspecified (principal); R48.0 Dyslexia and alexia
CPT/HCPCS: 93017